=== PATIENT | male | born 1955 | race Caucasian/White ===

== ENCOUNTER 2022-03-04 23:36 | Emergency (ER) | payer MEDICARE ==
[2022-03-04 23:39] VITALS: PULSE 81
[2022-03-04] MEDS ORDERED: Lidocaine 1% 5 ML VIAL INJECT ONE (23:48)
[2022-03-04 23:52] VITALS: BP 140/98
[2022-03-05] MEDS ORDERED: Bacitracin/Neomycin/Polymyxin B Oint 0.9 GM U/D Packet TOP ONE (00:16)
== END 2022-03-05 00:30 | disposition home or self-care (01) ==
LOC: LL.ED 23:36
DX: S61.452A Open bite of left hand, initial encounter (principal); W54.0XXA Bitten by dog, initial encounter
CPT/HCPCS: 12001; 13131; 99283; 99283-25

== ENCOUNTER 2025-05-03 11:06 | Emergency (ER) | payer MEDICARE ==
[2025-05-03 12:43] VITALS: BP 152/93; PULSE 89
== END 2025-05-03 11:28 | disposition home or self-care (01) ==
LOC: LL.ED 11:06
DX: K04.7 Periapical abscess without sinus (principal); F17.200 Nicotine dependence, unspecified, uncomplicated; Z79.899 Other long term (current) drug therapy
CPT/HCPCS: 99282; 99283